=== PATIENT | male | born 1960 | race American Indian/Alaskan Native ===

== ENCOUNTER 2021-06-20 11:32 | Inpatient (IN) | payer BC, MEDICARE ==
[2021-06-20] MEDS ORDERED: ASPIRIN 325 MG TAB PO ONE (11:40)
--- NOTE | 2021-06-20 12:13 | XRay Report ---
CHEST 2 VIEWS INDICATION / CLINICAL INFORMATION: Chest pain with shortness of breath. COMPARISON: None available. FINDINGS: SUPPORT DEVICES: None. HEART / MEDIASTINUM: No significant abnormality. LUNGS / PLEURA: A calcified granuloma is noted along the right lung base measuring 8.5 mm. The lungs are otherwise clear. No significant pleural effusion. No pneumothorax. ADDITIONAL FINDINGS: No significant additional findings. IMPRESSION: 1. No acute abnormality of the chest. Signer Name: Alexi Meyer MD Signed: 06/20/2021 12:08 PM Workstation Name: [id number]
--- NOTE | 2021-06-20 12:41 | Electrocardiograph Report ---
[facility] Test Date: 2021-06-20 Test Time: 11:47:27 Pat Name: CAYETANO VAZQUEZ Department: Room: Gender: M Skiver Blockers: ANTOLIN : 1960 Requested By: ED DOC Order Number: [id number] Reading MD: Alicia Islas Measurements Intervals [place] Rate: 96 P: 37 ID: [id number] QRS: -10 QRSD: 104 T: 30 QT: 389 QTc: 489 Interpretive Statements Sinus rhythm Atrial premature complex Probable left atrial enlargement Borderline ST depression, anterolateral leads No previous ECG available for comparison Electronically Signed On 06-20-2021 12:41:05 EDT by Alicia Islas
[2021-06-20 13:03] LABS: Basophils # (Auto) 0.1 K/mm3 (0.0-0.1); Basophils % (Auto) 0.7 % (0.0-1.8); Eosinophils # (Auto) 0.1 K/mm3 (0.0-0.4); Eosinophils % (Auto) 0.6 % (0.0-4.3); Hematocrit 36.7 % (35.5-45.6); Hemoglobin 12.8 gm/dl (11.8-15.2); Lymphocytes # (Auto) 1.9 K/mm3 (1.2-5.4); Lymphocytes % (Auto) 15.4 % (13.4-35.0); Mean Corpuscular HGB Conc 35 % (32-34); Mean Corpuscular Volume 102 fl (84-94); Monocytes # (Auto) 0.8 K/mm3 (0.0-0.8); Monocytes % (Auto) 6.8 % (0.0-7.3); Platelet Count 407 K/mm3 (140-440); Red Blood Count 3.61 M/mm3 (3.65-5.03); Red Cell Distribution Width 13.8 % (13.2-15.2)
[2021-06-20 13:29] LABS: Albumin 4.1 g/dL (3.9-5); Calcium 9.2 mg/dL (8.4-10.2)
[2021-06-20 13:40] LABS: Chol/HDL Ratio 4.41 %
[2021-06-20] MEDS ORDERED: SODIUM CHLORIDE 0.9% 1000 ML 1,000 ML IV ONE (13:56)
[2021-06-20] MEDS ORDERED: POTASSIUM CHLORIDE ER 20 MEQ TAB PO ONE (13:57)
[2021-06-20 15:34] LABS: INR 1.03 (0.87-1.13)
[2021-06-20] MEDS ORDERED: NITROGLYCERIN 0.4 MG TAB SUBL SL PRN (15:44)
[2021-06-20] MEDS ORDERED: traMADol 50 MG TAB PO PRN (15:44)
[2021-06-20] MEDS ORDERED: oxyCODONE /ACETAMINOPHEN 5-325MG TAB PO PRN (15:44)
[2021-06-20] MEDS ORDERED: ONDANSETRON 4 MG/2 ML INJ IV PRN (15:44)
[2021-06-20] MEDS ORDERED: ACETAMINOPHEN 325 MG TAB PO PRN ×2 (15:44)
[2021-06-20] MEDS ORDERED: HYDROmorphone 1 MG/1 ML INJ IV PRN (15:44)
--- NOTE | 2021-06-20 15:47 | Emergency Department Report ---
ED Chest Pain HPI - General Chief Complaint: Chest Pain Stated Complaint: CHEST PAIN/SOB Time Seen by Provider: 06/20/21 13:08 Source: patient Mode of arrival: Ambulatory Limitations: No Limitations - History of Present Illness Initial Comments: 60-year-old male, history of hyperthyroidism, hypertension, presents to ED with chest pain, radiating to the right arm. Patient states pain awoke him from sleep earlier today. He reports associated diaphoresis, nausea, and shortness of breath. States pain is aching in nature. Patient denies any leg pain or swelling. Patient states chest pain has resolved at this time. MD Complaint: chest pain -: This morning Onset: during rest Pain Location: left chest, other Pain Radiation: RUE Severity: moderate Quality: aching Consistency: intermittent Improves With: nothing Worsens With: nothing re: nausea, diaphoresis, dyspnea. denies: vomting Other Symptoms: denies: cough, fever, leg swelling - Related Data Previous Rx's Medication Instructions Recorded Last Taken Type Aspirin [Aspirin BABY CHEW TAB] 81 mg PO QDAY #30 tab.chew 06/22/21 Unknown Rx AtorvaSTATin [Lipitor] 20 mg PO QHS #30 tablet 06/22/21 Unknown Rx ISOSORBIDE MONOnitrate [Imdur ER] 30 mg PO QDAY #30 tablet 06/22/21 Unknown Rx Losartan Potassium 100 mg PO QDAY #30 06/22/21 Unknown Rx Losartan [Cozaar] 100 mg PO QDAY tablet 06/22/21 Unknown Rx Metoprolol [Lopressor TAB] 50 mg PO BID #60 tablet 06/22/21 Unknown Rx NIFEdipine [Nifedipine ER] 60 mg PO QDAY #30 06/22/21 Unknown Rx Omeprazole 40 mg PO QAM #30 06/22/21 Unknown Rx buPROPion HCl [Bupropion HCl ER] 150 mg PO BID #60 06/22/21 Unknown Rx buPROPion SR [Wellbutrin SR] 150 mg PO BID tablet 06/22/21 Unknown Rx hydroCHLOROthiazide [HCTZ] 25 mg PO QDAY #30 06/22/21 Unknown Rx methIMAzole [Tapazole] 5 mg PO BID #60 06/22/21 Unknown Rx Allergies Allergy/AdvReac Type Severity Reaction Status Date / Time No Known Allergies Allergy Unverified 06/20/21 11:38 Heart Score - HEART Score History: Moderately suspicious EKG: Non-specific Age: 45-65 Risk factors: 1-2 risk factors Troponin: 1-3x normal limit HEART Score: 5 - EKG Read Time Time EKG Completed: 11:47 EKG Read Time: 11:54 ED Review of Systems ROS: Stated complaint: CHEST PAIN/SOB Other details as noted in HPI Comment: All other systems reviewed and negative Constitutional: denies: fever Respiratory: shortness of breath. denies: cough Cardiovascular: chest pain Gastrointestinal: nausea. denies: vomiting Musculoskeletal: other (Denies leg pain and swelling) ED Past Medical Hx - Past Medical History Hx Hypertension: Yes - Surgical History Past Surgical History?: No - Medications Home Medications: Home Medications Medication Instructions Recorded Confirmed Last Taken Type Aspirin [Aspirin BABY CHEW TAB] 81 mg PO QDAY #30 tab.chew 06/22/21 Unknown Rx AtorvaSTATin [Lipitor] 20 mg PO QHS #30 tablet 06/22/21 Unknown Rx ISOSORBIDE MONOnitrate [Imdur ER] 30 mg PO QDAY #30 tablet 06/22/21 Unknown Rx Losartan Potassium 100 mg PO QDAY #30 06/22/21 Unknown Rx Losartan [Cozaar] 100 mg PO QDAY tablet 06/22/21 Unknown Rx Metoprolol [Lopressor TAB] 50 mg PO BID #60 tablet 06/22/21 Unknown Rx NIFEdipine [Nifedipine ER] 60 mg PO QDAY #30 06/22/21 Unknown Rx Omeprazole 40 mg PO QAM #30 06/22/21 Unknown Rx buPROPion HCl [Bupropion HCl ER] 150 mg PO BID #60 06/22/21 Unknown Rx buPROPion SR [Wellbutrin SR] 150 mg PO BID tablet 06/22/21 Unknown Rx hydroCHLOROthiazide [HCTZ] 25 mg PO QDAY #30 06/22/21 Unknown Rx methIMAzole [Tapazole] 5 mg PO BID #60 06/22/21 Unknown Rx ED Physical Exam - General Limitations: No Limitations General appearance: alert, in no apparent distress - Head Head exam: Present: atraumatic, normocephalic - Eye Eye exam: Present: normal appearance, EOMI - ENT ENT exam: Present: mucous membranes moist - Neck Neck exam: Present: normal inspection - Respiratory Respiratory exam: Present: normal lung sounds bilaterally. Absent: respiratory distress - Cardiovascular Cardiovascular Exam: Present: regular rate, normal rhythm - GI/Abdominal GI/Abdominal exam: Present: soft. Absent: distended, tenderness - Extremities Exam Extremities exam: Present: normal inspection. Absent: pedal edema, calf tenderness - Neurological Exam Neurological exam: Present: alert, oriented X3 - Psychiatric Psychiatric exam: Present: normal affect, normal mood - Skin Skin exam: Present: warm, dry, intact, normal color ED Course Vital Signs 06/20/21 06/20/21 06/20/21 11:43 12:57 13:00 Temperature 99.4 F Pulse Rate 95 H 98 H 91 H Respiratory 20 22 27 H Rate Blood Pressure 118/74 110/79 O2 Sat by Pulse 99 99 96 Oximetry 06/20/21 06/20/21 06/20/21 13:16 13:30 13:46 Temperature Pulse Rate 94 H 108 H 95 H Respiratory 16 19 23 Rate Blood Pressure 110/79 103/71 110/79 O2 Sat by Pulse 97 97 97 Oximetry 06/20/21 06/20/21 06/20/21 14:00 14:16 14:30 Temperature Pulse Rate 85 90 86 Respiratory 24 22 26 H Rate Blood Pressure 113/72 103/71 103/71 O2 Sat by Pulse 95 97 97 Oximetry 06/20/21 06/20/21 06/20/21 14:46 15:00 15:16 Temperature Pulse Rate 86 82 Respiratory 16 19 Rate Blood Pressure 126/86 126/86 126/86 O2 Sat by Pulse 97 95 95 Oximetry 06/20/21 06/20/21 06/20/21 15:30 15:46 16:00 Temperature Pulse Rate Respiratory Rate Blood Pressure 126/86 126/86 126/86 O2 Sat by Pulse 95 97 95 Oximetry 06/20/21 06/20/21 06/20/21 16:16 16:30 16:46 Temperature Pulse Rate Respiratory Rate Blood Pressure 126/86 126/86 126/86 O2 Sat by Pulse 95 95 95 Oximetry 06/20/21 06/20/21 06/20/21 17:00 17:16 17:30 Temperature Pulse Rate Respiratory Rate Blood Pressure 126/86 126/86 126/86 O2 Sat by Pulse 95 95 96 Oximetry 06/20/21 06/20/21 06/20/21 17:46 18:00 18:16 Temperature Pulse Rate 83 93 H Respiratory 24 28 H Rate Blood Pressure 126/86 135/85 135/85 O2 Sat by Pulse 94 94 94 Oximetry 06/20/21 06/20/21 06/20/21 18:30 18:46 19:00 Temperature Pulse Rate 86 98 H 85 Respiratory 26 H 15 27 H Rate Blood Pressure 135/85 135/85 130/80 O2 Sat by Pulse 91 100 93 Oximetry 06/20/21 06/20/21 06/20/21 19:16 19:30 19:46 Temperature Pulse Rate 65 98 H 83 Respiratory 26 H 15 29 H Rate Blood Pressure 130/80 130/80 130/80 O2 Sat by Pulse 96 98 94 Oximetry 06/20/21 06/20/21 06/20/21 20:00 20:16 20:30 Temperature Pulse Rate 91 H 78 67 Respiratory 18 28 H 22 Rate Blood Pressure 129/87 129/87 129/87 O2 Sat by Pulse 97 89 87 Oximetry 06/20/21 06/20/21 06/20/21 20:46 21:00 21:16 Temperature Pulse Rate 86 81 87 Respiratory 29 H 20 20 Rate Blood Pressure 129/87 101/54 101/54 O2 Sat by Pulse 93 96 95 Oximetry 06/20/21 06/20/21 06/20/21 21:30 21:46 22:00 Temperature Pulse Rate 75 75 89 Respiratory 23 22 27 H Rate Blood Pressure 101/54 101/54 115/78 O2 Sat by Pulse 95 88 92 Oximetry 06/20/21 06/20/21 06/20/21 22:16 22:30 22:34 Temperature Pulse Rate 93 H 87 78 Respiratory 19 16 18 Rate Blood Pressure 115/78 115/78 115/78 O2 Sat by Pulse 97 98 98 Oximetry 06/20/21 22:40 Temperature Pulse Rate 86 Respiratory 15 Rate Blood Pressure 115/78 O2 Sat by Pulse 99 Oximetry ED Medical Decision Making - Lab Data Result diagrams: 06/22/21 04:26 06/22/21 04:26 - EKG Data -: EKG Interpreted by Me EKG shows normal: sinus rhythm, axis, intervals, QRS complexes - EKG Data Interpretation: nonspecific ST-T wave [place] - Radiology Data Radiology results: report reviewed, image reviewed Critical care attestation.: If time is entered above; I have spent that time in minutes in the direct care of this critically ill patient, excluding procedure time. ED Disposition Clinical Impression: Acute chest pain, Hyponatremia, Hypokalemia, Elevated troponin Disposition: [id number] OP ADMIT IP TO THIS HOSP Is pt being admited?: Yes Condition: Stable Time of Disposition: 15:52
--- NOTE | 2021-06-20 15:54 | History and Physical Report ---
History of Present Illness Chief complaint: My chest hurts History of present illness: 60 YO Male with HTN, Hypothyroidism, Obesity Hypoventilation Syndrome presents to ED for evaluation. Patient reports "my chest hurts". Patient states that he has experienced sudden onset of chest pain that awakened him from sleep today. Patient states that pain is 6/10, initially intermittent but has become more constant, aching and crushing in nature, radiates to the left chest, worsened with exertion, not relieved with rest, associated with nausea, associated with diaphoresis, associated with shortness of breath. Patient transported to [facility] via private vehicle for further care and evaluation of the aforementioned sympto ms. The patient was seen and evaluated in the emergency department. All lab and imaging studies reviewed. Patient found to have angina at rest, acute kidney injury, as well as clinical symptoms consistent with diastolic CHF, as well as laboratory findings consistent with type II NSTEMI. Patient admitted to telemetry and initiated on chest pain protocol. Cardiology team consulted in ED. Patient denies fever, chills, palpitations, productive cough, skin rash, recent ill contact, or known exposure to COVID-19. No prior admission for review. No medication listed at time of admission for reconciliation. Advanced care planning conducted in ED. Past History Past Medical History: hypertension, hypothyroidism Past Surgical History: No surgical history, Other (Reviewed) Social history: single. denies: smoking, alcohol abuse, prescription drug abuse Family history: diabetes, hypertension Medications and Allergies Allergies Allergy/AdvReac Type Severity Reaction Status Date / Time No Known Allergies Allergy Unverified 06/20/21 11:38 Home Medications Medication Instructions Recorded Confirmed Last Taken Type AtorvaSTATin [Lipitor] 20 mg PO QHS 06/20/21 06/20/21 Unknown History Losartan Potassium 100 mg PO QDAY 06/20/21 06/20/21 Unknown History NIFEdipine [Nifedipine ER] 60 mg PO QDAY 06/20/21 06/20/21 Unknown History Omeprazole 40 mg PO QAM 06/20/21 06/20/21 Unknown History buPROPion HCl [Bupropion HCl ER] 150 mg PO BID 06/20/21 06/20/21 Unknown History hydroCHLOROthiazide [HCTZ] 25 mg PO QDAY 06/20/21 06/20/21 Unknown History methIMAzole [Tapazole] 5 mg PO BID 06/20/21 06/20/21 Unknown History Active Meds: Active Medications Acetaminophen (Acetaminophen 325 Mg Tab) 650 mg PO Q6H PRN PRN Reason: Pain, Mild (1-3) Acetaminophen (Acetaminophen 325 Mg Tab) 650 mg PO Q4H PRN PRN Reason: Pain MILD(1-3)/Fever >100.5/VELASQUEZ Aspirin (Aspirin 81 Mg Tab Chew) 324 mg PO ONCE STA Stop: 06/20/21 15:45 Famotidine (Famotidine 10 Mg Tab) 10 mg PO BID NOMAN Hydromorphone HCl (Hydromorphone 1 Mg/1 Ml Inj) 0.5 mg IV Q12H PRN PRN Reason: Pain , Severe (7-10) Sodium Chloride (Nacl 0.9% 1000 Ml) 1,000 mls @ 125 mls/hr IV DIRECT NOMAN Nitroglycerin (Nitroglycerin 0.4 Mg Tab Subl) 0.4 mg SL Q5M PRN PRN Reason: Chest Pain Ondansetron HCl (Ondansetron 4 Mg/2 Ml Inj) 4 mg IV Q8H PRN PRN Reason: Nausea And Vomiting Oxycodone/Acetaminophen (Oxycodone /Acetaminophen 5-325mg Tab) 1 tab PO Q12H PRN PRN Reason: Pain, Moderate (4-6) Sodium Chloride (Sodium Chloride 0.9% 10 Ml Flush Syringe) 10 ml IV PRN PRN PRN Reason: LINE FLUSH Sodium Chloride (Sodium Chloride 0.9% 10 Ml Flush Syringe) 10 ml IV BID NOMAN Sodium Chloride (Sodium Chloride 0.9% 10 Ml Flush Syringe) 10 ml IV PRN PRN PRN Reason: LINE FLUSH Tramadol HCl (Tramadol 50 Mg Tab) 50 mg PO Q6H PRN PRN Reason: Pain, Moderate (4-6) Review of Systems Constitutional: no weight loss, no weight gain, no fever, no chills Ears, nose, mouth and throat: no ear pain, no ear discharge, no nasal congestion, no nasal discharge, no sinus pain Cardiovascular: chest pain, shortness of breath, dyspnea on exertion, decreased exercise tolerance Respiratory: no cough, no cough with sputum, no excessive sputum Gastrointestinal: no abdominal pain, no vomiting, no diarrhea, no constipation, no change in bowel habits Genitourinary Male: no hematuria, no flank pain, no discharge, no urinary frequency, no urinary hesitancy Rectal: no pain, no incontinence, no bleeding Musculoskeletal: no arm numbness/tingling, no low back pain, no shooting leg pain, no leg numbness/tingling Neurological: no head injury, no transient paralysis, no weakness, no parathesias, no numbness, no tingling, no seizures, no syncope Psychiatric: no anxiety, no change in sleep habits, no sleep disturbances, no insomnia, no change in appetite, no change in libido Endocrine: no cold intolerance, no heat intolerance, no excessive thirst, no polyuria, no nocturia, no excessive sweating Hematologic/Lymphatic: no easy bruising, no easy bleeding, no lymphadenopathy Allergic/Immunologic: no allergic rhinitis, no wheezing, no persistent infections, no angioedema Exam - Constitutional Vitals: Temp Pulse Resp BP Pulse Ox 99.4 F 86 26 H 103/71 97 06/20/21 11:43 06/20/21 14:30 06/20/21 14:30 06/20/21 14:30 06/20/21 14:30 General appearance: Present: mild distress, obese - EENT Eyes: Present: PERRL ENT: hearing intact, clear oral mucosa - Neck Neck: Present: supple, normal ROM - Respiratory Respiratory effort: normal Respiratory: bilateral: CTA - Cardiovascular Heart Sounds: Present: S1 & S2. Absent: rub, click - Extremities Extremities: pulses symmetrical, No edema Peripheral Pulses: within normal limits - Abdominal General gastrointestinal: Present: soft, non-tender, non-distended, normal bowel sounds Male genitourinary: Present: normal - Integumentary Integumentary: Present: clear, warm, dry - Musculoskeletal Musculoskeletal: gait normal, strength equal bilaterally - Psychiatric Psychiatric: appropriate mood/affect, intact judgment & insight - Neurologic Neurologic: CNII-XII intact, moves all extremities HEART Score - HEART Score EKG: Non-specific Age: 45-65 Risk factors: 1-2 risk factors Troponin: Troponin T 0.082 ng/mL (0.00-0.029) H D 06/20/21 14:15 Troponin: 1-3x normal limit Results - Labs CBC & Chem 7: 06/20/21 12:45 06/20/21 12:45 Labs: Abnormal lab results 06/20/21 06/20/21 06/20/21 Range/Units 12:45 12:45 14:15 WBC 12.2 H (4.5-11.0) K/mm3 RBC 3.61 L (3.65-5.03) M/mm3 MCV 102 H (84-94) fl MCH 36 H (28-32) pg MCHC 35 H (32-34) % Seg Neutrophils % 76.5 H (40.0-70.0) % Seg Neutrophils # 9.4 H (1.8-7.7) K/mm3 D-Dimer (0-234) ng/mlDDU Sodium 124 L (137-145) mmol/L Potassium 3.1 L (3.6-5.0) mmol/L Chloride 80.4 L (98-107) mmol/L Creatinine 1.6 H (0.8-1.3) mg/dL Troponin T 0.056 H 0.082 H D (0.00-0.029) ng/mL Triglycerides 267 H (2-149) mg/dL Cholesterol 212 H (50-199) mg/dL LDL Cholesterol Direct 140 H (50-130) mg/dL 06/20/21 Range/Units 14:15 WBC (4.5-11.0) K/mm3 RBC (3.65-5.03) M/mm3 MCV (84-94) fl MCH (28-32) pg MCHC (32-34) % Seg Neutrophils % (40.0-70.0) % Seg Neutrophils # (1.8-7.7) K/mm3 D-Dimer 1805.96 H (0-234) ng/mlDDU Sodium (137-145) mmol/L Potassium (3.6-5.0) mmol/L Chloride (98-107) mmol/L Creatinine (0.8-1.3) mg/dL Troponin T (0.00-0.029) ng/mL Triglycerides (2-149) mg/dL Cholesterol (50-199) mg/dL LDL Cholesterol Direct (50-130) mg/dL Assessment and Plan - Patient Problems (1) Angina at rest Current Visit: Yes Status: Acute Plan to address problem: Chest pain protocol: Serial cardiac enzymes, EKG, telemetry, morphine, submental oxygen, nitro, aspirin, cardiology team consulted in ED. (2) PRINCE (acute kidney injury) Current Visit: Yes Status: Acute Plan to address problem: BMP, IV fluid resuscitation therapy, repeat BMP in a.m. to monitor serum creatinine as well as GFR. (3) Diastolic CHF Current Visit: Yes Status: Acute Qualifiers: Heart failure chronicity: acute Qualified Code(s): I50.31 - Acute diastolic (congestive) heart failure Plan to address problem: Strict I/O, monitor urine output every shift, daily weight, afterload reduction, blood pressure control, echocardiogram ordered and is pending at time of admission. (4) NSTEMI (non-ST elevated myocardial infarction) Current Visit: Yes Status: Acute Plan to address problem: Type II NSTEMI: Patient initiated on therapeutic anticoagulation in the emergency department, cardiology consulted in ED. (5) Obesity hypoventilation syndrome Current Visit: Yes Status: Acute Plan to address problem: Balanced diet, increase physical activity at discharge, outpatient pulmonary follow-up for sleep study. (6) DVT prophylaxis Current Visit: Yes Status: Acute Plan to address problem: SCD to bilateral lower extremities while in bed, therapeutic anticoagulation at this time. (7) Advance care planning Current Visit: Yes Status: Acute Plan to address problem: Disease education conducted, care plan discussed, diagnosis, discussed, prognosis discussed, patient is full code, patient knowledges understanding and agreement with care plan, +30 minutes.
[2021-06-20] MEDS ORDERED: ASPIRIN 81 MG TAB CHEW PO STA (15:55)
--- NOTE | 2021-06-20 17:38 | Cat Scan Report ---
CTA CHEST WITH CONTRAST INDICATION / CLINICAL INFORMATION: dyspnea, X1DAY PDPB170 100ML. TECHNIQUE: Axial CT images were obtained through the chest after injection of IV contrast. 3 plane IL P and/or 3D reconstructions were produced. All CT scans at this location are performed using CT dose reduction for ALARA by means of automated exposure control. COMPARISON: None available. FINDINGS: PULMONARY ARTERIES: No pulmonary emboli within the central and segmental pulmonary arteries. There is motion artifact limiting evaluation of the lower lobe subsegmental branches. THORACIC AORTA: No significant abnormality. HEART: No significant abnormality. CORONARY ARTERY CALCIFICATION: None. MEDIASTINUM / PHILIP: No significant abnormality. PLEURA: No pleural effusion. No pneumothorax. LUNGS: No acute air space or interstitial disease. There is groundglass opacification within the righ t lower lobe, likely representing atelectasis. ADDITIONAL FINDINGS: There is mucoid material within the right mainstem bronchus. UPPER ABDOMEN: There is a patulous esophagus. SKELETAL STRUCTURES: No significant osseous abnormality. IMPRESSION: 1. No CT evidence for central or segmental pulmonary embolism. The subsegmental arteries are limited secondary to patient motion. 2. No acute findings. 3. Patulous esophagus. 4. Mucoid material within the right mainstem bronchus which may aspirated material, correlate clinica lly. Signer Name: Carlos Grissom DO Signed: 06/20/2021 5:34 PM Workstation Name: [id number]
[2021-06-20] MEDS ORDERED: ENOXAPARIN 100 MG/1 ML INJ SUB-Q SCH (22:00)
[2021-06-20] MEDS ORDERED: ENOXAPARIN 120 MG/0.8 ML INJ SUB-Q SCH (22:00)
[2021-06-20] MEDS ORDERED: HEPARIN 10,000 UNITS/10 ML VIAL IV ONE (22:43)
[2021-06-20] MEDS ORDERED: HEPARIN/ 0.45% NACL DRIP 25,000 UNIT/500 ML BAG IV SCH (23:00)
[2021-06-20] MEDS: FAMOTIDINE 10 MG TAB PO SCH (23:10)
[2021-06-20] MEDS: SODIUM CHLORIDE 0.9% 1000 ML 1,000 ML IV SCH (23:12)
[2021-06-21] MEDS ORDERED: traZODone 50 MG TAB PO ONE (00:15)
[2021-06-21 06:10] LABS: BUN/Creatinine Ratio 8; Blood Urea Nitrogen 11 mg/dL (9-20); Calcium 8.1 mg/dL (8.4-10.2); Hemolysis Index 10
[2021-06-21] MEDS: SODIUM CHLORIDE 0.9% 1000 ML 1,000 ML IV SCH (06:33)
[2021-06-21] MEDS ORDERED: REGADENOSON 0.4 MG/5 ML INJ IV ONE (08:32)
[2021-06-21] MEDS ORDERED: SODIUM CHLORIDE 0.9% 500 ML 500 ML ONE (10:18)
[2021-06-21] MEDS ORDERED: ASPIRIN EC 325 MG TAB PO ONE ×2 (10:19→10:22)
[2021-06-21] MEDS ORDERED: HEPARIN/NS 5000 UNIT/500ML 1,000 ML IR ONE (10:34)
[2021-06-21] MEDS ORDERED: POTASSIUM CHLORIDE ER 20 MEQ TAB PO ONE ×2 (10:50→11:30)
[2021-06-21] MEDS ORDERED: SODIUM CHLORIDE 0.9% 500 ML 500 ML IV SCH (11:00)
[2021-06-21] MEDS: fentaNYL 100 MCG/2 ML INJ ONE ×2 (11:16→11:25)
[2021-06-21] MEDS: MIDAZOLAM 2 MG/2 ML INJ ONE ×2 (11:16→11:25)
[2021-06-21] MEDS: LIDOCAINE (2%) 20 MG/1 ML VIAL 20 ML MDV INFILTRATI ONE ×2 (11:17→11:26)
[2021-06-21] MEDS: HEPARIN 10,000 UNITS/10 ML VIAL ONE ×2 (11:17→11:28)
[2021-06-21] MEDS: VERAPAMIL 5 MG/2 ML INJ ONE ×2 (11:18→11:28)
[2021-06-21] MEDS: NITROGLYCERIN SYRINGE 3 ML ONE ×2 (11:19→11:28)
--- NOTE | 2021-06-21 11:38 | Progress Note ---
Assessment and Plan Assessment and plan: Chest pain. NSTEMI Acute kidney injury Hyponatremia. Obesity hypoventilation syndrome 06/21/2021. Patient does not show any evidence of diastolic heart failure. Patient has a normal BNP and chest x-ray unremarkable. Cardiology to perform cardiac catheterization for ischemic evaluation of chest pain. If cardiac catheterization negative, we will anticipate discharge in a.m. Continue IV fluids and follow-up BMP in the morning for hyponatremia. History Interval history: No new issues overnight. Hospitalist Physical - Constitutional Vitals: Temp Pulse Resp BP Pulse Ox 97.2 F L 87 17 150/94 97 06/21/21 07:59 06/21/21 08:00 06/21/21 08:00 06/21/21 07:59 06/21/21 08:00 General appearance: Present: no acute distress, obese - EENT Eyes: Present: PERRL, EOM intact ENT: hearing intact, clear oral mucosa, dentition normal - Neck Neck: Present: supple, normal ROM - Respiratory Respiratory effort: normal Respiratory: bilateral: CTA - Cardiovascular Rhythm: regular Heart Sounds: Present: S1 & S2. Absent: gallop, rub - Extremities Extremities: no ischemia, No edema, Full ROM - Abdominal General gastrointestinal: soft, non-tender, non-distended, normal bowel sounds - Integumentary Integumentary: Present: clear, warm, dry - Neurologic Neurologic: CNII-XII intact, moves all extremities HEART Score - HEART Score EKG: Non-specific Age: 45-65 Risk factors: 1-2 risk factors Troponin: Troponin T 0.121 ng/mL (0.00-0.029) H* 06/21/21 05:25 Troponin: 1-3x normal limit Results - Labs CBC & Chem 7: 06/20/21 12:45 06/21/21 05:25 Labs: Laboratory Last Values WBC 12.2 K/mm3 (4.5-11.0) H 06/20/21 12:45 RBC 3.61 M/mm3 (3.65-5.03) L 06/20/21 12:45 Hgb 12.8 gm/dl (11.8-15.2) 06/20/21 12:45 Hct 36.7 % (35.5-45.6) 06/20/21 12:45 MCV 102 fl (84-94) H 06/20/21 12:45 MCH 36 pg (28-32) H 06/20/21 12:45 MCHC 35 % (32-34) H 06/20/21 12:45 RDW 13.8 % (13.2-15.2) 06/20/21 12:45 Plt Count 407 K/mm3 (140-440) 06/20/21 12:45 Lymph % (Auto) 15.4 % (13.4-35.0) 06/20/21 12:45 [place] % (Auto) 6.8 % (0.0-7.3) 06/20/21 12:45 Eos % (Auto) 0.6 % (0.0-4.3) 06/20/21 12:45 Baso % (Auto) 0.7 % (0.0-1.8) 06/20/21 12:45 Lymph # (Auto) 1.9 K/mm3 (1.2-5.4) 06/20/21 12:45 [place] # (Auto) 0.8 K/mm3 (0.0-0.8) 06/20/21 12:45 Eos # (Auto) 0.1 K/mm3 (0.0-0.4) 06/20/21 12:45 Baso # (Auto) 0.1 K/mm3 (0.0-0.1) 06/20/21 12:45 Seg Neutrophils % 76.5 % (40.0-70.0) H 06/20/21 12:45 Seg Neutrophils # 9.4 K/mm3 (1.8-7.7) H 06/20/21 12:45 PT 14.1 Sec. (12.2-14.9) 06/20/21 14:15 INR 1.03 (0.87-1.13) 06/20/21 14:15 APTT 31.0 Sec. (24.2-36.6) 06/20/21 14:15 D-Dimer 1805.96 ng/mlDDU (0-234) H 06/20/21 14:15 Heparin Anti-Xa Level 0.11 U.I./ml (0.3-0.7) L 06/21/21 05:25 Sodium 124 mmol/L (137-145) L 06/21/21 05:25 Potassium 3.2 mmol/L (3.6-5.0) L 06/21/21 05:25 Chloride 85.3 mmol/L (98-107) L 06/21/21 05:25 Carbon Dioxide 25 mmol/L (22-30) 06/21/21 05:25 Anion Gap 17 mmol/L 06/21/21 05:25 BUN 11 mg/dL (9-20) 06/21/21 05:25 Creatinine 1.3 mg/dL (0.8-1.3) 06/21/21 05:25 Estimated GFR > 60 ml/min 06/21/21 05:25 BUN/Creatinine Ratio 8 % 06/21/21 05:25 Glucose 93 mg/dL (75-100) 06/21/21 05:25 Calcium 8.1 mg/dL (8.4-10.2) L 06/21/21 05:25 Total Bilirubin 0.80 mg/dL (0.1-1.2) 06/20/21 12:45 AST 25 units/L (5-40) 06/20/21 12:45 ALT 18 units/L (7-56) 06/20/21 12:45 Alkaline Phosphatase 57 units/L (35-129) 06/20/21 12:45 Troponin T 0.121 ng/mL (0.00-0.029) H* 06/21/21 05:25 NT-Pro-B Natriuret Pep 124.3 pg/mL (0-900) 06/20/21 15:57 Total Protein 7.2 g/dL (6.3-8.2) 06/20/21 12:45 Albumin 4.1 g/dL (3.9-5) 06/20/21 12:45 Albumin/Globulin Ratio 1.3 % 06/20/21 12:45 Triglycerides 267 mg/dL (2-149) H 06/20/21 12:45 Cholesterol 212 mg/dL (50-199) H 06/20/21 12:45 LDL Cholesterol Direct 140 mg/dL (50-130) H 06/20/21 12:45 HDL Cholesterol 48 mg/dL (40-59) 06/20/21 12:45 Cholesterol/HDL Ratio 4.41 % 06/20/21 12:45 Diaz/IV: Voiding Method Urinal Active Medications - Current Medications Current Medications: Generic Name Dose Route Start Last Admin Trade Name Navjot PRN Reason Stop Dose Admin Acetaminophen 650 mg 06/20/21 15:44 Acetaminophen 325 Mg Tab PO Q4H PRN Pain MILD(1-3)/Fever >100.5/VELASQUEZ Famotidine 10 mg 06/20/21 22:00 06/20/21 23:10 Famotidine 10 Mg Tab PO 10 mg BID NOMAN Administration Hydromorphone HCl 0.5 mg 06/20/21 15:44 Hydromorphone 1 Mg/1 Ml Inj IV Q12H PRN Pain , Severe (7-10) Sodium Chloride 1,000 mls @ 125 mls/hr 06/20/21 16:00 06/21/21 06:33 Nacl 0.9% 1000 Ml IV 125 mls/hr DIRECT NOMAN Administration Heparin Sodium/Sodium Chloride 25,000 unit in 500 mls @ 20 mls/hr 06/20/21 23:00 06/21/21 06:29 Heparin/ 0.45% Nacl-25,000 Unit/500 Ml IV 1,200 units/hr TITRATE NOMAN 24 mls/hr Titration Protocol 1,000 UNITS/HR Sodium Chloride 500 mls @ 50 mls/hr 06/21/21 11:00 06/21/21 10:34 Nacl 0.9% 500 Ml IV 50 mls/hr DIRECT NOMAN Administration Nitroglycerin 0.4 mg 06/20/21 15:44 Nitroglycerin 0.4 Mg Tab Subl SL Q5M PRN Chest Pain Ondansetron HCl 4 mg 06/20/21 15:44 Ondansetron 4 Mg/2 Ml Inj IV Q8H PRN Nausea And Vomiting Oxycodone/Acetaminophen 1 tab 06/20/21 15:44 Oxycodone /Acetaminophen 5-325mg Tab PO Q12H PRN Pain, Moderate (4-6) Sodium Chloride 10 ml 06/20/21 22:00 06/20/21 23:10 Sodium Chloride 0.9% 10 Ml Flush Syringe IV 10 ml BID NOMAN Administration Sodium Chloride 10 ml 06/20/21 15:44 Sodium Chloride 0.9% 10 Ml Flush Syringe IV PRN PRN LINE FLUSH Tramadol HCl 50 mg 06/20/21 15:44 Tramadol 50 Mg Tab PO Q6H PRN Pain, Moderate (4-6)
[2021-06-21] MEDS ORDERED: traMADol 50 MG TAB PO PRN (12:02)
--- NOTE | 2021-06-21 12:10 | Consultation ---
History of Present Illness Consult date: 06/21/21 Requesting physician: YESI BUSBY Consult reason: chest pain, elevated troponin, shortness of breath History of present illness: 60-year-old Afro-[place] male with history of hypertension hyperlipidemia obesity hypoventilation syndrome hypothyroidism for several months been having shortness of breath with exertion with PND. Tried diuretics by primary care doctor without relief. Been having fatigue with exertion. And had chest pain yesterday midsternal nonradiating abnormal troponin suggestive of non-STEMI patient was admitted found a mild renal sufficiency with hyponatremia. With hyperkalemia. Given patient symptomology patient was taken to the cardiac Email Administrator which revealed left main patent LAD patent circumflex patent ramus patent RCA patent small PLV with an 80% lesion with normal LV function with normal left end-diastolic pressure. Patient denies any fever chills nausea vomiting or syncope Past History Past Medical History: hypertension, hyperlipidemia, hypothyroidism Past Surgical History: No surgical history, Other (Reviewed) Social history: single. denies: smoking, alcohol abuse, prescription drug abuse Family history: diabetes, hypertension Medications and Allergies Allergies Allergy/AdvReac Type Severity Reaction Status Date / Time No Known Allergies Allergy Unverified 06/20/21 11:38 Home Medications Medication Instructions Recorded Confirmed Last Taken Type AtorvaSTATin [Lipitor] 20 mg PO QHS 06/20/21 06/20/21 Unknown History Losartan Potassium 100 mg PO QDAY 06/20/21 06/20/21 Unknown History NIFEdipine [Nifedipine ER] 60 mg PO QDAY 06/20/21 06/20/21 Unknown History Omeprazole 40 mg PO QAM 06/20/21 06/20/21 Unknown History buPROPion HCl [Bupropion HCl ER] 150 mg PO BID 06/20/21 06/20/21 Unknown History hydroCHLOROthiazide [HCTZ] 25 mg PO QDAY 06/20/21 06/20/21 Unknown History methIMAzole [Tapazole] 5 mg PO BID 06/20/21 06/20/21 Unknown History Active Meds: Active Medications Acetaminophen (Acetaminophen 325 Mg Tab) 650 mg PO Q4H PRN PRN Reason: Fever >100.5/VELASQUEZ Aspirin (Aspirin 81 Mg Tab Chew) 81 mg PO QDAY NOMAN Atorvastatin Calcium (Atorvastatin 20 Mg Tab) 20 mg PO QHS NOMAN Famotidine (Famotidine 10 Mg Tab) 10 mg PO BID [facility] Last Admin: 06/20/21 23:10 Dose: 10 mg Documented by: Sodium Chloride (Nacl 0.9% 500 Ml) 500 mls @ 50 mls/hr IV DIRECT [facility] Last Admin: 06/21/21 10:34 Dose: 50 mls/hr Documented by: Isosorbide Mononitrate (Isosorbide Mononitrate Er 30 Mg Tab) 30 mg PO QDAY [facility] Methimazole (Methimazole 5 Mg Tab) 5 mg PO BID [facility] Metoprolol Tartrate (Metoprolol Tartrate 25 Mg Tab) 25 mg PO BID [facility] Miscellaneous Medication (Bupropion Hcl [Bupropion Hcl Er]) 150 mg PO BID [facility] Miscellaneous Medication (Losartan Potassium [Losartan Potassium]) 100 mg PO QDAY [facility] Miscellaneous Medication (Omeprazole [Omeprazole]) 40 mg PO QAM [facility] Nitroglycerin (Nitroglycerin 0.4 Mg Tab Subl) 0.4 mg SL Q5M PRN PRN Reason: Chest Pain Ondansetron HCl (Ondansetron 4 Mg/2 Ml Inj) 4 mg IV Q8H PRN PRN Reason: Nausea And Vomiting Oxycodone/Acetaminophen (Oxycodone /Acetaminophen 5-325mg Tab) 1 tab PO Q12H PRN PRN Reason: Pain, Moderate (4-6) Sodium Chloride (Sodium Chloride 0.9% 10 Ml Flush Syringe) 10 ml IV BID [facility] Last Admin: 06/20/21 23:10 Dose: 10 ml Documented by: Sodium Chloride (Sodium Chloride 0.9% 10 Ml Flush Syringe) 10 ml IV PRN PRN PRN Reason: LINE FLUSH Tramadol HCl (Tramadol 50 Mg Tab) 50 mg PO Q4H PRN PRN Reason: Pain, Mild (1-3) Review of Systems All systems: negative (as per hpi) Physical Examination Vital Signs Temp Pulse Resp BP Pulse Ox 99.4 F 95 H 20 118/74 99 06/20/21 11:43 06/20/21 11:43 06/20/21 11:43 06/20/21 11:43 06/20/21 11:43 General appearance: no acute distress, well-nourished HEENT: Positive: PERRL, Mucus Membranes Moist Neck: Positive: neck supple, trachea midline Cardiac: Positive: Reg Rate and Rhythm, S1/S2. Negative: Audible Murmur Lungs: Positive: clear to auscultation, Normal Breath Sounds Neuro: Positive: Grossly Intact Abdomen: Positive: Soft, Active Bowel Sounds. Negative: Tender, Distended Male genitourinary: Positive: normal Skin: Positive: Clear Incision: Cardiac Cath Site Musculoskeletal: No Pain, Normal Range of Motion Extremities: Present: normal. Absent: edema Results 06/20/21 12:45 06/21/21 05:25 Cardiac Enzymes 06/20/21 Range/Units 12:45 AST 25 (5-40) units/L Coagulation 06/20/21 Range/Units 14:15 PT 14.1 (12.2-14.9) Sec. INR 1.03 (0.87-1.13) APTT 31.0 (24.2-36.6) Sec. Lipids 06/20/21 Range/Units 12:45 Triglycerides 267 H (2-149) mg/dL Cholesterol 212 H (50-199) mg/dL HDL Cholesterol 48 (40-59) mg/dL Cholesterol/HDL Ratio 4.41 % CBC 06/20/21 Range/Units 12:45 WBC 12.2 H (4.5-11.0) K/mm3 RBC 3.61 L (3.65-5.03) M/mm3 Hgb 12.8 (11.8-15.2) gm/dl Hct 36.7 (35.5-45.6) % Plt Count 407 (140-440) K/mm3 Lymph # (Auto) 1.9 (1.2-5.4) K/mm3 [place] # (Auto) 0.8 (0.0-0.8) K/mm3 Eos # (Auto) 0.1 (0.0-0.4) K/mm3 Baso # (Auto) 0.1 (0.0-0.1) K/mm3 Comprehensive Metabolic Panel 06/20/21 06/21/21 Range/Units 12:45 05:25 Sodium 124 L 124 L (137-145) mmol/L Potassium 3.1 L 3.2 L (3.6-5.0) mmol/L Chloride 80.4 L 85.3 L (98-107) mmol/L Carbon Dioxide 30 25 (22-30) mmol/L BUN 13 11 (9-20) mg/dL Creatinine 1.6 H 1.3 (0.8-1.3) mg/dL Glucose 100 93 (75-100) mg/dL Calcium 9.2 8.1 L (8.4-10.2) mg/dL AST 25 (5-40) units/L ALT 18 (7-56) units/L Alkaline Phosphatase 57 (35-129) units/L Total Protein 7.2 (6.3-8.2) g/dL Albumin 4.1 (3.9-5) g/dL - Imaging and Cardiology Cardiac cath: report reviewed (left main patent LAD patent circumflex patent ramus patent RCA patent small PLV with an 80% lesion with normal LV function with normal left end-diastolic pressure.) EKG interpretations - Telemetry EKG Rhythm: Sinus Rhythm (Normal sinus rhythm nonspecific ST-T) Assessment and Plan 60-year-old male with hypertension hyperlipidemia obesity hypoventilation syndrome PND orthopnea chest pain non-STEMI cardiac cath revealed nonobstructive disease with normal LV function normal left end-diastolic pressure stop hydrochlorothiazide continue losartan stop nifedipine start beta-charlie Imdur aspirin and statin. Advised for pulmonary consult. And echocardiogram for valvular heart disease. - Patient Problems (1) Hypertension Current Visit: Yes Status: Chronic Qualifiers: Hypertension type: primary hypertension Qualified Code(s): I10 - Essential (primary) hypertension (2) Hyperlipemia, mixed Current Visit: Yes Status: Chronic (3) PRINCE (acute kidney injury) Current Visit: Yes Status: Acute (4) Angina at rest Current Visit: Yes Status: Acute (5) Diastolic CHF Current Visit: Yes Status: Acute Qualifiers: Heart failure chronicity: acute Qualified Code(s): I50.31 - Acute diastolic (congestive) heart failure (6) Hypokalemia Current Visit: Yes Status: Acute (7) Hyponatremia Current Visit: Yes Status: Acute (8) NSTEMI (non-ST elevated myocardial infarction) Current Visit: Yes Status: Acute (9) Obesity hypoventilation syndrome Current Visit: Yes Status: Chronic
--- NOTE | 2021-06-21 12:25 | Consultation ---
History of Present Illness Consult date: 06/21/21 Requesting physician: WAYNE ROCKWELL Reason for consult: dyspnea History of present illness: 60 y/o male admitted for chest pain with positive troponin. Shortness of breath has been present for several months and chest pain is what brought him to the ED. Cathed this am and currently still in recovery. Per Cards consult, had no obstructing lesions with normal EF and normal LVEDP. Cards requested consult for PND and orthopnea. Past History Past Medical History: hypertension, hyperlipidemia, hypothyroidism Past Surgical History: No surgical history, Other (Reviewed) Social history: single. denies: smoking, alcohol abuse, prescription drug abuse Family history: diabetes, hypertension Medications and Allergies Allergies Allergy/AdvReac Type Severity Reaction Status Date / Time No Known Allergies Allergy Unverified 06/20/21 11:38 Home Medications Medication Instructions Recorded Confirmed Last Taken Type AtorvaSTATin [Lipitor] 20 mg PO QHS 06/20/21 06/20/21 Unknown History Losartan Potassium 100 mg PO QDAY 06/20/21 06/20/21 Unknown History NIFEdipine [Nifedipine ER] 60 mg PO QDAY 06/20/21 06/20/21 Unknown History Omeprazole 40 mg PO QAM 06/20/21 06/20/21 Unknown History buPROPion HCl [Bupropion HCl ER] 150 mg PO BID 06/20/21 06/20/21 Unknown History hydroCHLOROthiazide [HCTZ] 25 mg PO QDAY 06/20/21 06/20/21 Unknown History methIMAzole [Tapazole] 5 mg PO BID 06/20/21 06/20/21 Unknown History Active Meds: Active Medications Acetaminophen (Acetaminophen 325 Mg Tab) 650 mg PO Q4H PRN PRN Reason: Fever >100.5/VELASQUEZ Aspirin (Aspirin 81 Mg Tab Chew) 81 mg PO QDAY NOMAN Atorvastatin Calcium (Atorvastatin 20 Mg Tab) 20 mg PO QHS NOMAN Bupropion HCl (Bupropion Sr 150 Mg Tab) 150 mg PO BID NOMAN Famotidine (Famotidine 10 Mg Tab) 10 mg PO BID NOMAN Last Admin: 06/20/21 23:10 Dose: 10 mg Documented by: Sodium Chloride (Nacl 0.9% 500 Ml) 500 mls @ 50 mls/hr IV DIRECT NOMAN Last Admin: 06/21/21 10:34 Dose: 50 mls/hr Documented by: Isosorbide Mononitrate (Isosorbide Mononitrate Er 30 Mg Tab) 30 mg PO QDAY NOMAN Losartan Potassium (Losartan 50 Mg Tab) 100 mg PO QDAY NOMAN Methimazole (Methimazole 5 Mg Tab) 5 mg PO BID NOMAN Metoprolol Tartrate (Metoprolol Tartrate 25 Mg Tab) 25 mg PO BID [facility] Nitroglycerin (Nitroglycerin 0.4 Mg Tab Subl) 0.4 mg SL Q5M PRN PRN Reason: Chest Pain Ondansetron HCl (Ondansetron 4 Mg/2 Ml Inj) 4 mg IV Q8H PRN PRN Reason: Nausea And Vomiting Oxycodone/Acetaminophen (Oxycodone /Acetaminophen 5-325mg Tab) 1 tab PO Q12H PRN PRN Reason: Pain, Moderate (4-6) Sodium Chloride (Sodium Chloride 0.9% 10 Ml Flush Syringe) 10 ml IV BID [facility] Last Admin: 06/20/21 23:10 Dose: 10 ml Documented by: Sodium Chloride (Sodium Chloride 0.9% 10 Ml Flush Syringe) 10 ml IV PRN PRN PRN Reason: LINE FLUSH Tramadol HCl (Tramadol 50 Mg Tab) 50 mg PO Q4H PRN PRN Reason: Pain, Mild (1-3) Physical Examination Vital signs: Vital Signs Temp Pulse Resp BP Pulse Ox 99.4 F 95 H 20 118/74 99 06/20/21 11:43 06/20/21 11:43 06/20/21 11:43 06/20/21 11:43 06/20/21 11:43 Results - Laboratory Findings CBC and BMP: 06/20/21 12:45 06/21/21 05:25 PT/INR, D-dimer PT 14.1 Sec. (12.2-14.9) 06/20/21 14:15 INR 1.03 (0.87-1.13) 06/20/21 14:15 D-Dimer 1805.96 ng/mlDDU (0-234) H 06/20/21 14:15 Abnormal lab findings: Abnormal Labs 06/20/21 06/20/21 06/20/21 12:45 12:45 14:15 WBC 12.2 H RBC 3.61 L MCV 102 H MCH 36 H MCHC 35 H Seg Neutrophils % 76.5 H Seg Neutrophils # 9.4 H D-Dimer Heparin Anti-Xa Level Sodium 124 L Potassium 3.1 L Chloride 80.4 L Creatinine 1.6 H Calcium Troponin T 0.056 H 0.082 H D Triglycerides 267 H Cholesterol 212 H LDL Cholesterol Direct 140 H 06/20/21 06/20/21 06/20/21 14:15 18:37 20:32 WBC RBC MCV MCH MCHC Seg Neutrophils % Seg Neutrophils # D-Dimer 1805.96 H Heparin Anti-Xa Level Sodium Potassium Chloride Creatinine Calcium Troponin T 0.136 H* D 0.147 H* Triglycerides Cholesterol LDL Cholesterol Direct 06/21/21 06/21/21 06/21/21 05:25 05:25 05:25 WBC RBC MCV MCH MCHC Seg Neutrophils % Seg Neutrophils # D-Dimer Heparin Anti-Xa Level 0.11 L Sodium 124 L Potassium 3.2 L Chloride 85.3 L Creatinine Calcium 8.1 L Troponin T 0.121 H* Triglycerides Cholesterol LDL Cholesterol Direct - Diagnostic Findings CT scan - chest: image reviewed Assessment and Plan 60 y/o male with chest pain, and shortness of breath found to have clean coronaries on heart cath with hyponatremia, hypochloremia, hypokalemia and known hypothyroid. 1. Should be assessed outpatient for JOHNATHON with official screening and if positive PSG 2. Patient not on oxygen on admission, placed on 2 liters during cath and in the recovery area, should be able to wean off 3. Labs don't shows a significantly elevated bicarb so not sure that patient has OHS, no indication to check ABG at this time unless patient becomes significantly hypoxic or mental status changes and he becomes more somnolent 4. Reviewed CT of chest and no acute findings there that could explain chest paini 5. May need to evaluate TSH and Free T4 levels. 6. Electrolyte abnormalities per primary team. Thank you for the consult, will be happy to follow up with him as an outpatient. All others per primary team.
--- NOTE | 2021-06-21 14:13 | Electrocardiograph Report ---
[facility] Test Date: 2021-06-21 Test Time: 08:12:21 Pat Name: CAYETANO VAZQUEZ Department: Room: A477 1 Gender: M [place]: [place] : 1960 Requested By: GABI ÁLVAREZ Order Number: [id number] Reading MD: Alicia Islas Measurements Intervals [place] Rate: 93 P: 41 OR: 170 QRS: -32 QRSD: 101 T: 30 QT: 456 QTc: 568 Interpretive Statements Sinus rhythm Multiple premature complexes, vent & supraven Left axis deviation Prolonged QT interval Compared to ECG 06/20/2021 11:47:27 No significant change Electronically Signed On 06-21-2021 14:13:07 EDT by Alicia Islas
[2021-06-21] MEDS: FAMOTIDINE 10 MG TAB PO SCH ×2 (14:29→21:41)
--- NOTE | 2021-06-21 18:07 | Cardiac Catherization Report ---
DATE OF SERVICE: 06/21/2021 HEART CATHETERIZATION CLINICAL INFORMATION: This is a 60-year-old male who presents with chest pain. He has been having chronic shortness of breath, inability to lay down flat. Abnormal troponin suggestive of non-STEMI, is here for left heart catheterization. PROCEDURE PERFORMED: Moderate sedation started at 11:25, finished at 11:35, 10 minutes of moderate sedation and supervised. DESCRIPTION OF PROCEDURE: Procedure was done via the right radial artery, sterile technique, local anesthesia, 6-Swiss radial sheath inserted. Left system engaged JL3.5 catheter. Left main is large and patent, bifurcates into a large LAD, LAD is patent. Diagonal 1 diagonal 2 are small caliber, was patent. Ramus is a small to medium caliber vessel and the upper and lower branches are patent. Circumflex, large caliber vessel, bifurcates into a large OM1 that is patent. OM2 is a small caliber vessel that is patent. [place] circumflex becomes small to medium caliber and patent. RCA is a large dominant vessel, engaged JR4, patent from proximally and distally. PDA is small to medium caliber and patent. PLV is a small caliber vessel, less than 2 mm vessel, proximal 80% lesion. LV gram done in [place] and [place] shows normal LV function,ef 55-60%, LVEDP of 19 mmHg, LV is 134, aortic is 134/84. No gradient across the aortic valve on pullback. The 5-Swiss catheters all taken over a guidewire, 6-Swiss radial sheath was discontinued. Radial band applied. No hematoma, no bleeding. SUMMARY: Left main patent, LAD patent, circumflex patent, ramus patent, RCA patent, PDA patent, PLV 80%, small vessel. Treat medically with normal LV function. The patient was chest pain free. Treat medically. Unclear etiology of his shortness of breath and given normal LV function and patent epicardial vessels. TID: [id number] RECEIPT: [id number] DAYSI/MIROSLAVA/YASMEEN SALMON
[2021-06-21] MEDS: METOPROLOL TARTRATE 25 MG TAB PO SCH (21:41)
[2021-06-21] MEDS: methIMAzole 5 MG TAB PO SCH (21:42)
[2021-06-21] MEDS: buPROPion SR 150 MG TAB PO SCH (21:49)
[2021-06-21] MEDS ORDERED: BUPROPION HCL 200 MG PO SCH (22:00)
[2021-06-22 04:57] LABS: Basophils # (Auto) 0.1 K/mm3 (0.0-0.1); Basophils % (Auto) 0.8 % (0.0-1.8); Eosinophils # (Auto) 0.1 K/mm3 (0.0-0.4); Eosinophils % (Auto) 0.8 % (0.0-4.3); Hematocrit 33.9 % (35.5-45.6); Hemoglobin 11.6 gm/dl (11.8-15.2); Lymphocytes # (Auto) 1.9 K/mm3 (1.2-5.4); Lymphocytes % (Auto) 20.6 % (13.4-35.0); Mean Corpuscular HGB Conc 34 % (32-34); Mean Corpuscular Volume 101 fl (84-94); Monocytes # (Auto) 0.9 K/mm3 (0.0-0.8); Monocytes % (Auto) 9.4 % (0.0-7.3); Platelet Count 378 K/mm3 (140-440); Red Blood Count 3.35 M/mm3 (3.65-5.03)
[2021-06-22 05:11] LABS: BUN/Creatinine Ratio 9; Blood Urea Nitrogen 11 mg/dL (9-20); Calcium 9.2 mg/dL (8.4-10.2); Hemolysis Index 17
[2021-06-22] MEDS: buPROPion SR 150 MG TAB PO SCH (09:00)
[2021-06-22] MEDS: FAMOTIDINE 10 MG TAB PO SCH (09:00)
[2021-06-22] MEDS: methIMAzole 5 MG TAB PO SCH (09:00)
[2021-06-22] MEDS: METOPROLOL TARTRATE 25 MG TAB PO SCH (09:01)
[2021-06-22] MEDS ORDERED: ASPIRIN 81 MG TAB CHEW PO SCH (10:00)
[2021-06-22] MEDS ORDERED: NIFEdipine XL 60 MG TAB PO SCH (10:00)
[2021-06-22] MEDS ORDERED: LOSARTAN 50 MG TAB PO SCH (10:00)
[2021-06-22] MEDS ORDERED: NON-FORMULARY EACH (Losartan Potassium [Losartan Potassium] 100 MG Tablet) PO SCH (10:00)
[2021-06-22] MEDS ORDERED: METOPROLOL TARTRATE 25 MG TAB PO SCH (10:00)
[2021-06-22] MEDS ORDERED: NON-FORMULARY EACH (Omeprazole [Omeprazole] 40 MG Capsule.Dr) PO SCH (10:00)
--- NOTE | 2021-06-22 10:50 | Discharge Summary ---
Providers - Providers Date of Admission: 06/20/21 15:45 Date of discharge: 06/22/21 Attending physician: YESI BUSBY 06/20/21 Consult to Cardiac Rehabilitation [CONS] Routine Reason For Exam: Phase I 06/20/21 15:45 Consult to Cardiology [CONS] Routine Consulting Provider: RAGHU PATEL Reason For Exam: angina/chf 06/21/21 12:02 Consult to Cardiac Rehabilitation [CONS] Routine Reason For Exam: Cardiac Rehab Evaluation Primary care physician: G[employer] FRAME ASSEMBLER Hospitalization Reason for admission: Chest pain, elevated troponin, shortness of breath. Condition: Stable Hospital course: 60-year-old male with history of hypertension hyperlipidemia obesity hypoventilation syndrome hypothyroidism for several months been having shortness of breath with exertion with PND. Tried diuretics by primary care doctor without relief. 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 The patient had troponin suggestive of non-STEMI. Patient also has some renal insufficiency with elevated creatinine. The patient was admitted with diagnosis of acute kidney injury secondary to vasomotor nephropathy, hyponatremia, hyperkalemia and NSTEMI. Given patient symptomology, patient was taken to the cardiac [facility] which revealed left main patent LAD patent circumflex patent ramus patent RCA patent small PLV with an 80% lesion with normal LV function with normal left end-diastolic pressure. Cardiology recommended pulmonary consultation. Pulmonary recommended follow-up as an outpatient for JOHNATHON with sleep study. CT of chest with no acute findings. Patient has a history of hypothyroidism with thyroid evaluation and thyroid functions were normal. Cardiology and pulmonary cleared the patient for discharge. Dedicated discharge time 35 minutes. Disposition: [id number] TO HOME OR SELFCARE Final Discharge Diagnosis (Prints w/discharge instructions): NSTEMI type II in the setting of acute kidney injury. Acute kidney injury secondary to vasomotor nephropathy, hyponatremia Core Measure Documentation - Palliative Care Palliative Care/ Comfort Measures: Not Applicable - Core Measures Any of the following diagnoses?: acute SC - Acute SC Discharge Requirements Aspirin at discharge: Yes GISELA/ARB for LVSD if EF <40%: Yes Beta charlie at discharge: Yes Statin for LDL = or >100 mg/dl on DC: Yes Exam - Constitutional Vitals: Temp Pulse Resp BP Pulse Ox 98.5 F 79 18 148/67 98 06/22/21 07:19 06/22/21 09:01 06/22/21 08:37 06/22/21 09:01 06/22/21 08:37 General appearance: Present: no acute distress, well-nourished - EENT Eyes: Present: PERRL ENT: hearing intact, clear oral mucosa - Neck Neck: Present: supple, normal ROM - Respiratory Respiratory effort: normal Respiratory: bilateral: CTA - Cardiovascular Heart Sounds: Present: S1 & S2. Absent: rub, click - Extremities Extremities: pulses symmetrical, No edema Peripheral Pulses: within normal limits - Abdominal General gastrointestinal: Present: soft, non-tender, non-distended, normal bowel sounds Male genitourinary: Present: normal - Integumentary Integumentary: Present: clear, warm, dry - Musculoskeletal Musculoskeletal: gait normal, strength equal bilaterally - Psychiatric Psychiatric: appropriate mood/affect, intact judgment & insight - Neurologic Neurologic: CNII-XII intact, moves all extremities Plan Activity: advance as tolerated Weight Bearing Status: Weight Bear as Tolerated Follow up with: PRIMARY CARE, [Primary Care Provider] - 3-5 Days Prescriptions: Aspirin [Aspirin BABY CHEW TAB] 81 mg PO QDAY #30 tab.chew buPROPion HCl [Bupropion HCl ER] 150 mg PO BID #60 hydroCHLOROthiazide [HCTZ] 25 mg PO QDAY #30 ISOSORBIDE MONOnitrate [Imdur ER] 30 mg PO QDAY #30 tablet AtorvaSTATin [Lipitor] 20 mg PO QHS #30 tablet Metoprolol [Lopressor TAB] 50 mg PO BID #60 tablet Losartan Potassium 100 mg PO QDAY #30 NIFEdipine [Nifedipine ER] 60 mg PO QDAY #30 Omeprazole 40 mg PO QAM #30 methIMAzole [Tapazole] 5 mg PO BID #60
--- NOTE | 2021-06-22 11:03 | Progress Note ---
Assessment and Plan 60-year-old male with hypertension hyperlipidemia obesity hypoventilation syndrome PND orthopnea chest pain non-STEMI cardiac cath revealed nonobstructive disease with normal LV function normal left end-diastolic pressure stop hydrochlorothiazide continue losartan stop nifedipine start beta-charlie Imdur aspirin and statin. Left a message for the sister. Patient is feeling much better normal LV function echocardiogram. - Patient Problems (1) Hypertension Current Visit: Yes Status: Chronic Qualifiers: Hypertension type: primary hypertension Qualified Code(s): I10 - Essential (primary) hypertension (2) Hyperlipemia, mixed Current Visit: Yes Status: Chronic (3) PRINCE (acute kidney injury) Current Visit: Yes Status: Acute (4) Angina at rest Current Visit: Yes Status: Acute (5) Diastolic CHF Current Visit: Yes Status: Acute Qualifiers: Heart failure chronicity: acute Qualified Code(s): I50.31 - Acute diastolic (congestive) heart failure (6) Hypokalemia Current Visit: Yes Status: Acute (7) Hyponatremia Current Visit: Yes Status: Acute (8) NSTEMI (non-ST elevated myocardial infarction) Current Visit: Yes Status: Acute (9) Obesity hypoventilation syndrome Current Visit: Yes Status: Chronic Subjective Date of service: 06/22/21 Principal diagnosis: sob Interval history: Patient is feeling better shortness of breath has resolved no chest pain Objective Vital Signs Temp Pulse Pulse Pulse Resp BP BP 06/22/21 10:49 78 128/74 06/22/21 09:01 79 148/67 06/22/21 08:37 81 81 18 06/22/21 07:19 98.5 F 73 19 140/88 06/22/21 05:00 46 L 06/22/21 04:00 97.7 F 65 18 133/81 06/21/21 23:09 98.0 F 70 19 130/86 06/21/21 21:41 92 H 130/76 06/21/21 21:00 94 H 06/21/21 19:07 97.8 F 94 H 18 130/76 06/21/21 14:00 97.9 F 75 16 126/77 06/21/21 13:30 98.0 F 81 18 130/67 06/21/21 13:00 98.2 F 81 16 128/74 06/21/21 12:45 98.1 F 72 15 130/75 06/21/21 12:35 98.2 F 95 H 18 131/93 06/21/21 12:31 98.4 F 88 17 133/85 Pulse Ox 06/22/21 10:49 06/22/21 09:01 06/22/21 08:37 98 06/22/21 07:19 96 06/22/21 05:00 06/22/21 04:00 93 06/21/21 23:09 95 06/21/21 21:41 06/21/21 21:00 06/21/21 19:07 94 06/21/21 14:00 98 06/21/21 13:30 97 06/21/21 13:00 98 06/21/21 12:45 97 06/21/21 12:35 100 06/21/21 12:31 97 - Physical Examination HEENT: Positive: PERRL, Mucus Membranes Moist Neck: Positive: neck supple, trachea midline Cardiac: Positive: Reg Rate and Rhythm Lungs: Positive: clear to auscultation Neuro: Positive: Grossly Intact Abdomen: Positive: Soft, Active Bowel Sounds. Negative: Tender, Distended Skin: Positive: Clear Incision: Cardiac Cath Site Musculoskeletal: No Pain, Normal Range of Motion Extremities: Present: normal. Absent: edema - Labs and Meds CBC 06/22/21 Range/Units 04:26 WBC 9.1 (4.5-11.0) K/mm3 RBC 3.35 L (3.65-5.03) M/mm3 Hgb 11.6 L (11.8-15.2) gm/dl Hct 33.9 L (35.5-45.6) % Plt Count 378 (140-440) K/mm3 Lymph # (Auto) 1.9 (1.2-5.4) K/mm3 Winkler # (Auto) 0.9 H (0.0-0.8) K/mm3 Eos # (Auto) 0.1 (0.0-0.4) K/mm3 Baso # (Auto) 0.1 (0.0-0.1) K/mm3 Comprehensive Metabolic Panel 06/22/21 Range/Units 04:26 Sodium 130 L (137-145) mmol/L Potassium 3.8 (3.6-5.0) mmol/L Chloride 89.8 L (98-107) mmol/L Carbon Dioxide 29 (22-30) mmol/L BUN 11 (9-20) mg/dL Creatinine 1.2 (0.8-1.3) mg/dL Glucose 109 H (75-100) mg/dL Calcium 9.2 (8.4-10.2) mg/dL - Imaging and Cardiology Echo: report reviewed (Normal LV function no significant regurgitation) Cardiac cath: report reviewed (left main patent LAD patent circumflex patent ramus patent RCA patent small PLV with an 80% lesion with normal LV function with normal left end-diastolic pressure.) - Telemetry EKG Rhythm: Sinus Rhythm
[2021-06-22 11:41] VITALS: BP 136/83
== END 2021-06-22 13:08 | disposition home or self-care (01) | DRG 682 ==
LOC: ED 11:32 → OBSVTOIN 15:45 → 4A 15:45
PROVIDERS: ADMIT Internal Medicine; ATTEND Hospitalist
PROC: 4A023N7 Measurement of Cardiac Sampling and Pressure, Left Heart, Percutaneous Approach (ICD-10-PCS; principal; 2021-06-21)
PROC: B211YZZ Fluoroscopy of Multiple Coronary Arteries using Other Contrast (ICD-10-PCS; 2021-06-21)
PROC: B215YZZ Fluoroscopy of Left Heart using Other Contrast (ICD-10-PCS; 2021-06-21)
DX: N17.0 Acute kidney failure with tubular necrosis (principal); I21.A1 Myocardial infarction type 2; I50.31 Acute diastolic (congestive) heart failure; E87.1 Hypo-osmolality and hyponatremia; E66.2 Morbid (severe) obesity with alveolar hypoventilation; I11.0 Hypertensive heart disease with heart failure; I20.8 Other forms of angina pectoris; E03.9 Hypothyroidism, unspecified; E87.6 Hypokalemia; E87.8 Other disorders of electrolyte and fluid balance, not elsewhere classified; E78.2 Mixed hyperlipidemia; E87.5 Hyperkalemia; Z82.49 Family history of ischemic heart disease and other diseases of the circulatory system; Z83.3 Family history of diabetes mellitus; Z79.899 Other long term (current) drug therapy
CPT/HCPCS: 36415; 71046; 71275; 80048; 80053; 80061; 83880; 84439; 84443; 84484; 85025; 85379; 85520; 85610; 85730; 93005; 93306; 93458; 96374; G0378; C1894; J1644; J1650; J2250; J3010; J7030; J7040; Q9967